=== PATIENT | male | born 1990 | race Caucasian/White ===

== ENCOUNTER 2016-12-05 20:06 | Emergency (ER) | payer BC ==
[2016-12-05] MEDS ORDERED: METHYLPREDNISOLONE SOD SUCC/PF 125 MG/2 ML VIAL IV ONE (20:27)
[2016-12-05] MEDS ORDERED: diphenhydrAMINE HCL 50 MG/ML VIAL IV ONE (20:27)
[2016-12-05] MEDS ORDERED: FAMOTIDINE 10 MG/ML VIAL IV ONE ×2 (20:27→20:28)
[2016-12-05] MEDS ORDERED: diphenhydrAMINE HCL 50 MG/ML VIAL ONE (20:28)
[2016-12-05] MEDS ORDERED: METHYLPREDNISOLONE SOD SUCC/PF 125 MG/2 ML VIAL ONE (20:28)
--- NOTE | 2016-12-05 20:35 | ERNOTE ---
Integumentary HPI - General Presenting Symptoms: rash, other - feeling hot all over Time Seen by Provider: 12/05/16 20:22 Source: patient Exam Limitations: no limitations - Immun/Allergies/Home Medications Immunizations: IMMUNIZATION HX Immunizations Up to Date Yes Allergies/Adverse Reactions: Allergies Allergy/AdvReac Type Severity Reaction Status Date / Time No Known Allergies Allergy Unverified 12/05/16 20:19 Home Medications: HOME MEDICATIONS Methylprednisolone [Medrol Dosepak] 4 mg PO DAILY #21 tab.ds.pk 12/05/16 [Last Taken Unknown] - Pain Pain Score: 5 - History of Present Illness Narrative: Pt was stung by bees about a half an hour ago. He reports beginning to feel hot all over and having chills soon after getting stung. He was unable to see the insects clearly but thinks it was black in color. His friend was also stung but has no systemic symptoms Location: Reports: generalized Quality: Reports: itching, burning Severity: moderate, severe Exposure: Reports: bee/wasp sting Review of Systems - Review of Systems Constitutional: Present: chills EYE: Present: no symptoms reported ENT: Present: no symptoms reported Respiratory: Present: other - States he has to concentrate on breathing deep.. Absent: shortness of breath, wheezing Cardiology: Absent: chest pain Gastrointestinal/Abdominal: Absent: nausea, vomiting Genitourinary: Present: no symptoms reported Musculoskeletal: Absent: muscle stiffness Skin: Present: rash - only beginning to break out Neurological: Present: no symptoms reported Endocrine: Present: no symptoms reported Hematologic/Lymphatic: Present: no symptoms reported Psych: Present: no symptoms reported - Patient's Past Medical History Patient History - Medical: No pertinent hx Patient History - Cardiac/Respiratory: No pertinent hx Patient History - Cancer: No Hx of Cancer Patient History - Surgical Procedures: Hernia Repair Patient History - Other: None - Social History Living Situations: home Smoking Status: Current every day smoker Patient requests Smoking Cessation Consult: No Initiate information on Smoking Cessation: No Alcohol Use: none Drug Use: none - Immunizations Immunizations Up to Date: Yes Physical Exam - Physical Exam General Appearance: Present: wd/wn, alert, mild distress Head Exam: Present: no tenderness w palpation - to the left parietal area where he states he was stung. Eye Exam: Normal inspection: bilateral Ears, Nose, Throat: Present: normal ENT inspection Neck: Present: normal inspection, nontender, supple Respiratory: Present: no respiratory distress, no accessory muscle use, lungs clear Cardiovascular/Chest: Present: no murmur, normal peripheral pulses, tachycardia - slightly Gastrointestinal/Abdominal: Present: normal bowel sounds, nontender Back Exam: Present: normal inspection, normal range of motion, no vertebral tenderness Extremity Exam: Present: normal inspection, normal range of motion, no edema Neurological Exam: Present: alert, oriented, normal mood/affect, no motor/ sensory deficits Skin Exam: Present: skin rash - fine papular rash diffusely Lymphatic Exam: Present: no adenopathy ED Progress - Vital Signs Vital Signs: Vital Signs 12/05/16 20:14 Temperature 36.4 C L Pulse Rate 106 H Respiratory 20 Rate Blood Pressure 146/70 O2 Sat by Pulse 100 Oximetry - Progress/Reassessment Chief Complaint: Insect Bite Progress:: Improved Progress Note-Subjective: 12/05/16 21:30 Pt feeling better, rash has dissipated. Discussed reaction and that I don't feel that this reaction warrants him carrying an epi-pen. Suggested that he take benadryl BENITO with future stings and if he has any respiratory symptoms to seek immediate medical attention. Pt expressed understanding. 12/06/16 01:02 Departure Clinical Impression: Insect sting Qualifiers: Encounter type: initial encounter Injury intent: accidental or unintentional Qualified Code(s): T63.481A - Toxic effect of venom of other arthropod, accidental (unintentional), initial encounter - Departure Disposition: Home self-care Condition: Good Instructions: Bee, Wasp, or Hornet Sting Additional Instructions: Take prescription as directed starting tomorrow. Take benadryl 25-50 mg every 6 hours as needed for itching. Take zantac or pepcid in addition to the benadryl if you are still having itching. Return to the ER if you have shortness of breath. Take benadryl immediately with future stings and again if you have any other symptoms go to the nearest ER. Prescriptions: Methylprednisolone [Medrol Dosepak] 4 mg PO DAILY #21 tab.ds.pk
[2016-12-05 22:01] VITALS: BP 115/64
== END 2016-12-05 21:46 | disposition home or self-care (01) ==
LOC: ER 20:06
DX: T63.441A Toxic effect of venom of bees, accidental (unintentional), initial encounter (principal); F17.200 Nicotine dependence, unspecified, uncomplicated

== ENCOUNTER 2017-01-30 16:17 | Emergency (ER) | payer BC ==
[2017-01-30 16:52] LABS: Hematocrit 45.7 % (42.0-52.0); Hemoglobin 15.8 gm/dL (13.5-18.0); Mean Cell Volume 91.2 fl (78-100); Mean Corpuscular Hemoglobin 31.5 pg (27-31); Mean Corpuscular Hgb Conc 34.6 g/dl (32-36); Mean Platelet Volume 9.6 fl (6.0-9.5); Neutrophil # 4.6 K/mm3 (1.3-6.0); Neutrophil % 82.9 % (42-75.0); Platelet Count 108 K/mm3 (150-450); Red Blood Count 5.01 M/mm3 (4.7-6.0); Red Cell Distribution Width 12.8 % (11.5-14.0); White Blood Count 5.6 K/mm3 (4.0-10.5)
[2017-01-30 17:06] LABS: Albumin * 3.9 gm/dl (3.4-5.0); Anion Gap 11.7 mmol/L (6.8-13.8); BUN/Creatinine Ratio 10.9 (9.0-21.6); Bilirubin, Total 0.7 mg/dL (0.0-1.1); Ca. Corrected For Albumin 8.3 mg/dL (8.4-10.2); Calcium * 8.5 mg/dL (7.9-10.9); Carbon Dioxide 29.4 mmol/L (24-32.6); Potassium 4.1 mmol/L (3.4-4.6); Total Protein 7.6 gm/dL (6.2-8.2)
--- NOTE | 2017-01-30 17:06 | ERNOTE ---
Medical Problem HPI - General Chief Complaint: Fever Time Seen by Provider: 01/30/17 16:28 Source: patient Exam Limitations: no limitations - Immun/Allergies/Home Medications Immunizations: IMMUNIZATION HX Immunizations Up to Date Yes Allergies/Adverse Reactions: Allergies No Known Allergies Allergy (Verified 01/30/17 16:27) Home Medications: HOME MEDICATIONS NK [No Home Medication] 01/30/17 [Last Taken Unknown] - History of Present History Narrative: Patient has not felt well for almost 48hrs. He has felt fatigued, slept a lot, woke up drenched in sweat a few times, has has chills and subjective fever, has been taking tylenol and ibuprofen last around 11:30. He denies any focal symptoms, has been able to drink water and juice as well as food Date (Duration): 01/28/17 Review of Systems - Review of Systems Constitutional: Present: fever, chills, fatigue, malaise EYE: Absent: double vision ENT: Absent: nose congestion, sore throat Respiratory: Absent: shortness of breath, cough Cardiology: Absent: chest pain Gastrointestinal/Abdominal: Absent: nausea, vomiting, abdominal pain Genitourinary: Absent: frequency, dysuria Musculoskeletal: Absent: back pain, muscle pain Neurological: Absent: headache, weakness, numbness Endocrine: Present: excessive sweating - Patient's Past Medical History Patient History - Medical: No pertinent hx Patient History - Cardiac/Respiratory: No pertinent hx Patient History - Cancer: No Hx of Cancer Patient History - Surgical Procedures: Hernia Repair Patient History - Other: None - Social History Living Situations: home Smoking Status: Current every day smoker - cutting down and working on quitting Alcohol Use: none Drug Use: none - Immunizations Immunizations Up to Date: Yes Physical Exam - Physical Exam General Appearance: Present: wd/wn, alert, no apparent distress Head Exam: Present: normal inspection, no evidence of injury Eye Exam: Normal inspection: bilateral, PERRL: bilateral Ears, Nose, Throat: Present: normal ENT inspection, normal pharynx Neck: Present: normal inspection, nontender, supple Respiratory: Present: no respiratory distress, normal breath sounds, no accessory muscle use, lungs clear Cardiovascular/Chest: Present: regular rate, rhythm, no murmur Gastrointestinal/Abdominal: Present: nontender, nondistended, soft Neurological Exam: Present: alert, oriented, normal mood/affect, no motor/ sensory deficits Skin Exam: Present: normal color, warm/dry ED Progress - Results and Orders Patient's Lab Results:: I have reviewed the patient's lab results. - Vital Signs Patient's Vital Signs:: I have reviewed the patient's vital signs. Vital Signs: Vital Signs 01/30/17 16:21 Temperature 37.1 C Pulse Rate 117 H Respiratory 12 Rate Blood Pressure 143/73 O2 Sat by Pulse 98 Oximetry - Progress/Reassessment Chief Complaint: Fever Progress Note-Subjective: 01/30/17 17:51 discussed test results with patient,most likely viral illness patient is chilling again, repeat temp 38. 7, will give ibuprofen Departure Clinical Impression: Viral illness - Departure Disposition: Home self-care Condition: Good Additional Instructions: you have a viral infection take over the counter tylenol (every four hours) or ibuprofen (three pills at a time every six hours) as needed for fever and chills if you have any additional symptoms return to the ER or the walk in clinic
[2017-01-30 17:13] LABS: Urine Bilirubin Negative (NEGATIVE); Urine Blood Negative /ul (NEGATIVE); Urine Ketone Negative (NEGATIVE); Urine Nitrite Negative (NEGATIVE); Urine Protein 30 mg/dL (NEGATIVE); Urine Specific Gravity >=1.030 SP.GR. (1.005-1.030); Urine Urobilinogen Normal (NORMAL)
[2017-01-30 17:30] LABS: Urine Appearance Slightly Cloudy; Urine Color Yellow; Urine WBC 0-5 /hpf (0-5)
[2017-01-30 17:31] LABS: Urine Bacteria 3+; Urine Hyaline Cast 0-5 /LPF; Urine Mucus Many - 3+; Urine RBC None Seen /hpf (0-5)
[2017-01-30 17:38] LABS: Cocaine Ur Negative (NEGATIVE); Urine Barbiturate Negative (NEGATIVE); Urine Benzodiazepines Negative (NEGATIVE); Urine Opiates Negative (NEGATIVE); Urine PCP Negative (NEGATIVE); Urine THC Negative (NEGATIVE)
[2017-01-30] MEDS ORDERED: IBUPROFEN 600 MG TABLET PO ONE (17:50)
[2017-01-30] MEDS ORDERED: IBUPROFEN 600 MG TABLET ONE (18:01)
[2017-01-30 18:08] VITALS: BP 121/56
== END 2017-01-30 18:09 | disposition home or self-care (01) ==
LOC: ER 16:17
DX: B34.9 Viral infection, unspecified (principal); F17.200 Nicotine dependence, unspecified, uncomplicated

== ENCOUNTER 2017-02-03 11:25 | Emergency (ER) | payer BC ==
[2017-02-03] MEDS ORDERED: KETOROLAC TROMETHAMINE 60 MG/2 ML VIAL IM ONE ×2 (11:50→11:52)
--- NOTE | 2017-02-03 11:57 | ERNOTE ---
Medical Problem HPI - Narrative Date of Service: 02/03/17 - General Chief Complaint: Dizziness Time Seen by Provider: 02/03/17 11:37 Source: patient Exam Limitations: no limitations - Immun/Allergies/Home Medications Immunizations: IMMUNIZATION HX Immunizations Up to Date Yes History of Influenza Vaccine No Allergies/Adverse Reactions: Allergies No Known Allergies Allergy (Verified 02/03/17 11:33) Home Medications: HOME MEDICATIONS NK [No Home Medication] 01/30/17 [Last Taken Unknown] - History of Present History Date (Duration): 01/28/17 Timing: intermittent Severity: mild Modifying Factors - (Improves): Present: rest Review of Systems - Narrative Narrative: Patient states he has been ill for the past 6 days and has been into the ER with a full negative workup 4 days ago. States that he continues to run fevers and he has an odd pressure on the top of his head especially when standing up suddenly. States he also will get dizzy. Drinks 6 bottles of water daily. Was told he has a viral illness but he feels he should be better before today. - Review of Systems Constitutional: Present: fever, weakness, fatigue, decreased activity level EYE: Present: no symptoms reported ENT: Present: no symptoms reported Respiratory: Present: no symptoms reported Cardiology: Present: no symptoms reported Gastrointestinal/Abdominal: Present: no symptoms reported Genitourinary: Present: no symptoms reported Musculoskeletal: Present: other - general body aches. Skin: Present: no symptoms reported Neurological: Present: dizziness/light-headedness Endocrine: Present: no symptoms reported Hematologic/Lymphatic: Present: no symptoms reported Psych: Present: no symptoms reported - Patient's Past Medical History Patient History - Medical: No pertinent hx Patient History - Cardiac/Respiratory: No pertinent hx Patient History - Cancer: No Hx of Cancer Patient History - Surgical Procedures: Hernia Repair Patient History - Other: None - Immunizations Immunizations Up to Date: Yes History of Influenza Vaccine: No Physical Exam - Physical Exam General Appearance: Present: wd/wn, alert, no apparent distress, other - Patient does not appear ill. Head Exam: Present: normal inspection, no evidence of injury, no tenderness w palpation Eye Exam: Normal inspection: bilateral, PERRL: bilateral, EOMI: bilateral Ears, Nose, Throat: Present: normal ENT inspection Neck: Present: normal inspection, nontender, supple, full range of motion, other - Negative nuchal rigidity Respiratory: Present: no respiratory distress, normal breath sounds, no accessory muscle use, chest nontender, lungs clear Cardiovascular/Chest: Present: regular rate, rhythm, no murmur, normal peripheral pulses Peripheral Pulses: N=norm/S=strong/W=weak/B=bound/A=absent: Radial (R): Normal, Radial (L): Normal Gastrointestinal/Abdominal: Present: normal bowel sounds, nontender, nondistended, soft, no organomegaly Back Exam: Present: normal inspection, normal range of motion, no CVA tenderness , no vertebral tenderness Extremity Exam: Present: normal inspection, non-tender, normal range of motion, no edema Neurological Exam: Present: alert, oriented, normal mood/affect, no motor/ sensory deficits Skin Exam: Present: normal color, warm/dry Lymphatic Exam: Present: no adenopathy ED Progress - Vital Signs Patient's Vital Signs:: I have reviewed the patient's vital signs. Vital Signs: Vital Signs 02/03/17 11:29 Temperature 36.7 C Pulse Rate 83 Respiratory 14 Rate Blood Pressure 133/68 O2 Sat by Pulse 99 Oximetry - Progress/Reassessment Chief Complaint: General Assessment Progress:: Improved Progress Note-Subjective: 02/03/17 12:29 States his head is feeling better. Denies any dizziness Departure Clinical Impression: Viral illness - Departure Disposition: Home self-care Condition: Good Additional Instructions: You appear to have a viral illness that will not respond to antibiotics. May take 2-3 wks to feel better but you should not worsen. No specific treatment other than treating the symptoms as they appear. Continue to drink lots of fluid. Use ibuprofen 3-4 tabs (600-800mg) every 6 hrs with food. May also take tylenol 650mg every 6 hrs in between the ibuprofen. If you feel you are not improving quickly enough may follow up with family provider.
[2017-02-03 12:06] LABS: Hematocrit 39.7 % (42.0-52.0); Hemoglobin 14.2 gm/dL (13.5-18.0); Mean Cell Volume 87.8 fl (78-100); Mean Corpuscular Hemoglobin 31.4 pg (27-31); Mean Corpuscular Hgb Conc 35.8 g/dl (32-36); Mean Platelet Volume 10.5 fl (6.0-9.5); Neutrophil # 4.5 K/mm3 (1.3-6.0); Neutrophil % 83.3 % (42-75.0); Platelet Count 90 K/mm3 (150-450); Red Blood Count 4.52 M/mm3 (4.7-6.0); Red Cell Distribution Width 12.4 % (11.5-14.0); White Blood Count 5.4 K/mm3 (4.0-10.5)
[2017-02-03 12:58] VITALS: BP 112/71
== END 2017-02-03 12:58 | disposition home or self-care (01) ==
LOC: ER 11:25
DX: B34.9 Viral infection, unspecified (principal)